=== PATIENT | female | born 1940 | race Caucasian/White ===

== ENCOUNTER 2017-04-03 07:50 | Day surgery (SDC) | payer MEDICARE, BC ==
[~2017-04-03 07:50] MED LIST: LIDOCAINE HCL 1% MPF SOL ONE; PROPOFOL 500 MG/50 ML EMU IV ONE
[2017-04-03 09:36] VITALS: TEMP 97.9
[2017-04-03 10:07] VITALS: BP 157/67; PULSE 59; RESP 20; O2SAT 98
== END 2017-04-03 10:47 | disposition home or self-care (01) | DRG 951 ==
LOC: SURG 07:50
PROVIDERS: ATTEND Internal Medicine Gastroenterology
DX: Z12.11 Encounter for screening for malignant neoplasm of colon (principal); K64.8 Other hemorrhoids; K57.30 Diverticulosis of large intestine without perforation or abscess without bleeding; K62.1 Rectal polyp
CPT/HCPCS: J2001; J2704

== ENCOUNTER → 2019-01-14 | Day surgery (SDC) | payer MEDICARE, BC ==
[~2019-01-14] MED LIST changes: +ACETAZOLAMIDE 250 MG PO ONE; +BSS 500 ML 500 ML IR ONE; +IMPRIMIS ONE; +LIDOCAINE HCL 1% MPF 30 SOL ONE; -LIDOCAINE HCL 1% MPF SOL ONE; +MIDAZOLAM 2 MG/2 ML SOL ONE; +POVIDONE IODINE 5% SOL ONE; -PROPOFOL 500 MG/50 ML EMU IV ONE
[2019-01-14] MEDS: TETRACAINE HCL 0.5 % 1 DROP SOL ONE ×3 (06:11→07:35)
[2019-01-14] MEDS: PHENYLEPHRINE HCL 10% OPHTHAL SOL ONE ×2 (06:12→06:26)
[2019-01-14] MEDS: CYCLOPENTOLATE 1% SOL ONE ×2 (06:13→06:27)
[2019-01-14] MEDS: KETOROLAC 0.5% OPTH 60 DROP SOL ONE ×2 (06:14→06:28)
[2019-01-14 08:02] VITALS: BP 153/79; PULSE 52; RESP 18; TEMP 97.4; O2SAT 96
== END | disposition home or self-care (01) | DRG 125 ==
LOC: SURG 06:00
PROVIDERS: ATTEND Ophthalmology
DX: H25.89 Other age-related cataract (principal)
CPT/HCPCS: J2250; A9270-GY; J2001